=== PATIENT | male | born 1960 | race Caucasian/White ===

== ENCOUNTER 2017-05-10 04:21 | Emergency (ER) | payer MEDICAID, OTHER ==
[~2017-05-10] VITALS: Ht 165.1 cm; Wt 55.9 kg
[2017-05-10 04:23] VITALS: Ht 165.1 cm; Wt 55.9 kg
[2017-05-10] MEDS ORDERED: BELLADONNA/PHENOBARBITAL TAB PO STA (04:47)
[2017-05-10] MEDS ORDERED: FAMOTIDINE 20 MG TAB PO STA (04:47)
[2017-05-10] MEDS ORDERED: LIDOCAINE/MYLANTA 40 ML BTL PO STA (04:47)
[2017-05-10] MEDS ORDERED: SOD CHLORIDE 0.9% 1,000 ML IV STA (04:47)
[2017-05-10] MEDS ORDERED: ONDANSETRON 4 MG INJ IV STA (04:47)
[2017-05-10] MEDS ORDERED: morphine 4 MG/ML VIAL IV STA (04:47)
--- NOTE | 2017-05-10 05:11 | ERA ---
ER Documentation Chief Complaint Date/Time DATE: 05/10/17 TIME: 05:05 Chief Complaint Abdominal pain back pain HPI 56-year-old man brought in by his for complaints of bilateral lower abdominal pain initially beginning in his upper back earlier this evening. He has no significant past medical history and denies previous episodes. He has had no vomiting or diarrhea, no chest pain or shortness of breath, no headache or blurry vision. Patient denies fevers or chills. ROS All systems reviewed and are negative except as per history of present illness. Allergies Allergies: Coded Allergies: No Known Allergy (Unverified , 05/10/17) PMhx/Soc None Medical and Surgical Hx: pt denies Medical Hx, pt denies Surgical Hx Hx Alcohol Use: No Hx Substance Use: No Hx Tobacco Use: No Smoking Status: Never smoker FmHx Family History: No diabetes Physical Exam Vitals Vital Signs Date Time Temp Pulse Resp B/P Pulse Ox O2 Delivery O2 Flow Rate FiO2 05/10/17 04:23 97.9 94 18 154/83 98 Physical Exam GENERAL: Well-developed, well-nourished, appears anxious, and discomfort HEENT: Moist mucous membranes, pink conjunctiva, no cervical spine tenderness or step-off deformities, no goiter, no jaundice or icterus, extraocular movements intact without pain. No submandibular induration, and no pharyngeal erythema NEURO: Alert and oriented 3, cranial nerves II through XII intact bilaterally, pupils equal round reactive to light, no focal deficits or facial asymmetry, sensation intact distally Strength 5/5 in upper and lower extremities bilaterally CARDIAC: Regular rate and rhythm, no murmurs rubs or gallops LUNGS: Clear bilaterally no wheezing crackles or stridor ABDOMEN: Soft nontender, no guarding, no rigidity, no rebound, no psoas sign no obturator sign. Normoactive bowel sounds SKIN: Warm and dry to touch, no abrasions, contusions, or hematomas, no lacerations, no ecchymosis, no target lesions, and without ulcers EXTREMITIES: No clubbing cyanosis or edema, calves are bilaterally symmetrical, no Homans sign, no popliteal cord sign. Distal pulses equal and bilateral PSYCH: Anxious Results 24 hrs Current Medications Medications (Trade) Dose Ordered Sig/Macario Route PRN Reason Start Time Stop Time Status Last Admin Dose Admin Sodium Chloride (NS) 1,000 ml @ 1,000 mls/hr Q1H STAT IV 05/10/17 04:47 05/10/17 05:46 05/10/17 04:56 Morphine Sulfate (morphine) 4 mg ONCE STAT IV 05/10/17 04:47 05/10/17 04:48 DC 05/10/17 04:56 Ondansetron HCl (Zofran Inj) 4 mg ONCE STAT IV 05/10/17 04:47 05/10/17 04:48 DC 05/10/17 04:56 Famotidine (Pepcid) 40 mg ONCE STAT PO 05/10/17 04:47 05/10/17 04:48 DC 05/10/17 04:56 Miscellaneous Medication (Gi Cocktail (2)) 40 ml ONCE STAT PO 05/10/17 04:47 05/10/17 04:48 DC 05/10/17 04:56 Belladonna/ Phenobarbital () 2 tab ONCE STAT PO 05/10/17 04:47 05/10/17 04:48 DC 05/10/17 04:56 Procedures/MDM IV line was established patient was placed on patient monitor rhythm strip revealed a sinus rhythm at about 80 bpm with upright P and T waves. Patient was afebrile. I administered 1 L normal saline intravenously, morphine 4 mg IV, Zofran 4 mg IV , famotidine 40 mg p.o., and GI cocktail 30 cc p.o., With good response. EKG performed, read by me revealed a normal sinus rhythm at 76 bpm, left axis deviation and a narrow QRS complex with nonspecific ST changes in precordial leads, no concerning ST elevations or depressions noted. Positive PAC. CT scan of the abdomen and pelvis was performed, given the patient's symptoms. There was no acute inflammatory or infectious pathology noted, vascular structures were unremarkable. Please refer radiologist's dictation for full report. CBC and electrolytes are normal, liver function tests are normal, troponin was negative. Differential diagnoses considered, included but not limited to acute coronary syndrome, pulmonary embolism, aortic dissection, abdominal aortic aneurysm, sepsis, stroke, meningitis, encephalitis, pneumonia, appendicitis, cholecystitis , bowel obstruction, pyelonephritis, nephrolithiasis, cystitis, as well as metabolic, hematologic, and electrolyte abnormalities. As well as abscess, cellulitis, fractures, and dislocations. Patient feels much better at this time, and vital signs are normal, symptoms have improved. I did give strict instructions to return to the ED if symptoms continue or worsen, patient will otherwise follow-up with primary care physician. Patient understood instructions and agreed to plan. Disclaimer: Inadvertent spelling and grammatical errors are likely due to EHR/ dictation software use and do not reflect on the overall quality of patient care. Also, please note that the electronic time recorded on this note does not necessarily reflect the actual time of the patient encounter. Departure Diagnosis: Primary Impression: Abdominal pain Qualified Code: R10.30 - Lower abdominal pain Condition: Good DILEEP GARNER MD May 10, 2017 05:10
[2017-05-10 05:20] LABS: BASOPHILS % 0.6 % (0.0-2.0); EOSINOPHILS # 0.1 10^3/ul (0.0-0.5); HEMATOCRIT 42.6 % (42.0-52.0); HEMOGLOBIN 14.7 g/dl (14.0-18.0); LYMPHOCYTES # 2.9 10^3/ul (0.8-2.9); LYMPHOCYTES % 40.6 % (15.0-51.0); MEAN CORPUSCULAR HGB CONC 34.5 g/dl (32.0-37.0); MEAN CORPUSCULAR VOLUME 86.9 fl (82.0-101.0); MEAN PLATELET VOLUME 11.4 fl (7.4-10.4); MONOCYTE # 0.6 10^3/ul (0.3-0.9); NEUTROPHILS % 49.7 % (39.0-77.0); PLATELET COUNT 266 10^3/UL (140-415); RED CELL DISTRIBUTION WIDTH 12.7 % (11.5-14.5); WHITE BLOOD COUNT 7.2 10^3/ul (4.8-10.8)
[2017-05-10 05:33] LABS: PROTIME 13.2 Sec (12.2-14.2)
--- NOTE | 2017-05-10 05:35 | RADRPT ---
PROCEDURE: CT Abdomen and pelvis without contrast. CLINICAL INDICATION: Abdominal pain. TECHNIQUE: CT scan of the abdomen and pelvis was performed on a multi-detector high-resolution CT scanner. Contiguous axial images were obtained from the lung bases to the ischial tuberosities wit hout intravenous contrast. Coronal and sagittal reformatted images were also obtained. Images were reviewed on the PACS workstation. One or more of the following dose reduction techniques were used: - Automated exposure control. - Adjustment of the mA and/or kV according to patient size. - Use of iterative reconstruction technique. Exam CTD/vol = 4.60 mGy. Total exam DLP = 265.73 mGy-cm. COMPARISON: None. FINDINGS: Evaluation of the lung bases demonstrates no pleural or parenchymal disease. Abdomen: The liver is normal in size. There is no focal mass or dilatation of the biliary tree. T he gallbladder is not distended. The spleen, pancreas and bilateral adrenal glands are within mac l limits. Bilateral kidneys are normal in size with no contour deforming mass identified. There is no radiopaque renal calculus identified. There is mild left-sided hydronephrosis. There is no ret roperitoneal adenopathy. The abdominal aorta is of normal caliber. There is no abnormal bowel wall thickening or distension. There is no bowel obstruction or free air . A normal appendix is identified. There is no diverticulosis or diverticulitis. There is no asci kathleen. Pelvis: The bladder is unremarkable. There is a calculus within the left distal ureter measuring 4 x 3 mm. The prostate and seminal vesicles are within normal limits. There is no significant pelvi c adenopathy or free fluid. Evaluation of the osseous structures demonstrates no suspicious lytic or blastic lesion. IMPRESSION: Left distal ureteral 4 x 3 mm calculus with mild left-sided hydronephrosis. .Donis Nelson MD, MD Date Time Electronically viewed and signed by .Donis Nelson MD, MD on 05/10/2017 05:35 .T/
[2017-05-10 05:39] LABS: ALBUMIN 4.7 g/dl (3.3-4.9); ALBUMIN/GLOBULIN RATIO 1.62; BILIRUBIN,INDIRECT 0.5 mg/dl (0-1.1); BILIRUBIN,TOTAL 0.5 mg/dl (0.2-1.3); CALCIUM 9.9 mg/dl (8.4-10.2); CREATININE 1.03 mg/dl (0.61-1.24); TOTAL PROTEIN 7.6 g/dl (6.1-8.1)
[2017-05-10 05:44] VITALS: BP 132/84; PULSE 50; RESP 18; TEMP 98.3
[2017-05-10 05:52] LABS: POTASSIUM 2.9 mmol/L (3.5-5.1)
[2017-05-10] MEDS ORDERED: POTASSIUM CHLORIDE (SR) 20 MEQ TAB PO STA (05:54)
[2017-05-10] MEDS ORDERED: OXYC-279 PO (05:59)
[2017-05-10] MEDS ORDERED: CEPH500C PO (05:59)
[2017-05-10] MEDS ORDERED: IBUP-1542 PO (05:59)
[2017-05-10] MEDS ORDERED: POTASSIUM BICARBONATE 25 MEQ TAB PO ONE (06:30)
== END 2017-05-10 07:26 | disposition home or self-care (01) ==
LOC: E/R 04:21
DX: R10.31 Right lower quadrant pain (principal); R10.32 Left lower quadrant pain
CPT/HCPCS: 74176; 80053; 83690; 85025; 85610; 93005; 96374; 96375; J2270; J2405; J7030; Z7502; Z7610